=== PATIENT | male | born 1955 | race Caucasian/White ===

== ENCOUNTER 2018-06-03 09:28 | Emergency (ER) | payer OTHER ==
[~2018-06-03] VITALS: Ht 188 cm; Wt 93.9 kg
--- NOTE | 2018-06-03 09:55 | ED GI/GU/ABDOMINAL COMPLAINT ---
History of Present Illness General Chief Complaint: Male Genitourinary Problems Stated Complaint: SEEN IN URGENT CARE FOR UTI SAT NO BETTER FEVER Source: patient, family, old records Exam Limitations: no limitations Vital Signs & Intake/Output Vital Signs & Intake/Output Vital Signs Date Time Temp Pulse Resp B/P B/P Pulse O2 O2 Flow FiO2 Mean Ox Delivery Rate 06/03 1204 98.9 82 20 133/70 98 Room Air 06/03 0935 97.9 120 18 123/81 98 Room Air Room Air Allergies Coded Allergies: No Known Allergies (06/03/18) Triage Note: TRIAGE: WAS DIAGNOSED WITH UTI 06/01/2018 AT AN URGENT CARE. REPORTS NOT FEELING BETTER. WAS PLACED ON CIPRO - HAS TAKEN PRESCRIBED. Triage Nurses Notes Reviewed? yes HPI: On Sunday patient began to experience dysuria, urinary frequency and hesitancy. He went to a walk in center and was diagnosed with UTI and he was put on Cipro. Patient states that he has been taking Cipro yet the symptoms are worsening. He 's been running a fever up to 102 as well as some nausea. He is having severe hesitancy and burning with any urination. Patient states that he is not getting all the urine out. Patient denies any penile discharge. He denies any back pain. Past History Travel History Traveled to [place] past 21 day No Medical History Any Pertinent Medical History? see below for history Cardiovascular: hyperlipidemia Gastrointestinal: GERD Renal: benign prost hyperplasia Endocrine: diabetes Surgical History Surgical History: non-contributory Psychosocial History What is your primary language [place] Tobacco Use: Quit >30 days ago ETOH Use: occasional use Illicit Drug Use: denies illicit drug use Family History Hx Contributory? No Review of Systems Review of Systems Constitutional: Reports: see HPI, chills, fever. EENTM: Reports: no symptoms. Respiratory: Reports: no symptoms. Cardiovascular: Reports: no symptoms. GI: Reports: see HPI, nausea. Genitourinary: Reports: see HPI, dysuria, frequency, hesitation, pain. Musculoskeletal: Reports: no symptoms. Skin: Reports: no symptoms. Neurological/Psychological: Reports: no symptoms. Hematologic/Endocrine: Reports: no symptoms. Immunologic/Allergic: Reports: no symptoms. All Other Systems: Reviewed and Negative Physical Exam Physical Exam General Appearance: well developed/nourished, alert, awake, anxious, moderate distress Head: atraumatic, normal appearance Eyes: Bilateral: PERRL, EOMI. Ears, Nose, Throat, Mouth: hearing grossly normal, DRY MUCOSA Neck: normal inspection, supple, full range of motion Respiratory: normal breath sounds, chest non-tender, no respiratory distress, lungs clear Cardiovascular: regular rate/rhythm, normal peripheral pulses Gastrointestinal: normal bowel sounds, soft, non-tender, no organomegaly Back: normal inspection, normal range of motion, NO cva TENDERNESS Extremities: normal range of motion Neurologic/Psych: no motor/sensory deficits, awake, alert, oriented x 3, normal gait, normal mood/affect Skin: intact, normal color Core Measures ACS in differential dx? No Sepsis Present: No Sepsis Focused Exam Completed? No Progress Differential Diagnosis: urinary retention, UTI/pyelo Plan of Care: Orders Procedure Date/time Status LACTIC ACID 06/03 125 Active CULTURE,URINE 06/03 955 Active BLOOD CULTURE 06/03 955 Active URINALYSIS 06/03 955 Complete LACTIC ACID 06/03 955 Complete COMPREHENSIVE METABOLIC PANEL 06/03 955 Complete CBC WITHOUT DIFFERENTIAL 06/03 955 Complete Laboratory Tests 06/03/18 1010: Anion Gap 11, Estimated GFR > 60, BUN/Creatinine Ratio 11.0, Glucose 403 H, Lactic Acid 1.7, Calcium 9.4, Total Bilirubin 0.9, AST 19, ALT 23, Alkaline Phosphatase 77, Total Protein 7.0, Albumin 4.0, Globulin 3.0, Albumin/Globulin Ratio 1.3, CBC w Diff NO MAN DIFF REQ, RBC 4.78, MCV 91.5, MCH 30.9, MCHC 33.8, RDW 13.5, MPV 8.0, Gran % 80.6 H, Lymphocytes % 7.4 L, Monocytes % 11.3 H, Eosinophils % 0.5, Basophils % 0.2, Absolute Granulocytes 9.3 H, Absolute Lymphocytes 0.9 L, Absolute Monocytes 1.3 H, Absolute Eosinophils 0.1, Absolute Basophils 0, Urine Color STRAW, Urine Clarity CLEAR, Urine pH 6.0, Ur Specific [place] 1.025, Urine Protein NEG, Urine Ketones 40 H, Urine Nitrite NEG, Urine Bilirubin NEG, Urine Urobilinogen 0.2, Ur Leukocyte Esterase NEG, Ur Microscopic EXAM NOT REQUIRED, Urine Hemoglobin NEG, Urine Glucose >=1000 H Microbiology 06/03 1017 BLOOD: Blood Culture - RECD 06/03 1010 URINE ROUT: Urine Culture - RECD 06/03 1010 BLOOD: Blood Culture - RECD Diagnostic Imaging: Viewed by Me: CT Scan. Discussed w/RAD: CT Scan. Radiology Impression: PATIENT: PARRISH PICKARD PRESENT AGE: 63 PATIENT ACCOUNT NO: [id number] : 57 LOCATION: [facility] ORDERING PHYSICIAN: Linden Figueroa MD SERVICE DATE: 06/03/18 EXAM TYPE: CAT - CT ABD & PELVIS W/O IV CONTRAS EXAMINATION: CT ABDOMEN AND PELVIS WITHOUT CONTRAST CLINICAL INFORMATION: Suprapubic pain. Presumptive diagnosis of kidney stone. COMPARISON: None. TECHNIQUE: Multidetector volumetric imaging was performed from the superior aspect of the liver through the pubic symphysis. Sagittal and coronal reformatted images were obtained on the technologist workstation. DLP: 380.81 mGy-cm. FINDINGS: LUNG BASES: Mild dependent atelectasis in both lung bases. LIVER, GALLBLADDER, AND BILIARY TREE: The liver is enlarged, measuring 23.4 cm longitudinally. Liver parenchymal attenuation normal. No focal hepatic lesion on noncontrast imaging. No biliary ductal dilatation is present. The patient is status post cholecystectomy. PANCREAS: Unremarkable on noncontrast imaging. SPLEEN, ADRENAL GLANDS: Unremarkable on noncontrast imaging. KIDNEYS AND URETERS: The kidneys are normal in size, shape, and attenuation. There is an exophytic 1.7 x 1.3 cm cyst in the mid right kidney. No hydronephrosis, hydroureter, or calculi seen. In the pelvis, in region of the ureterovesical junctions, multiple calcifications are seen bilaterally, most consistent with phleboliths. No perinephric stranding. BLADDER : Unremarkable. PELVIC VISCERA: Unremarkable. GASTROINTESTINAL TRACT: The small and large bowel are unremarkable. The appendix is not definitely seen, but no focal inflammatory process is noted in the right lower quadrant. ABDOMINAL WALL: There is a small fat-containing umbilical hernia. LYMPH NODES, VASCULAR: Adenopathy. Incidental note is made of a circumaortic left renal vein. OSSEOUS STRUCTURES: There is a mild convex right lumbar scoliosis with moderate vertebral spondylosis in the lower thoracic spine and at L1-4. Mild facet arthropathy in the lower lumbar spine. No suspicious bone findings. IMPRESSION: 1. No evidence of nephrolithiasis or hydroureteronephrosis. 2. Small exophytic mid right renal cyst. 3. Enlarged right lobe of liver, measuring 23.4 cm longitudinally. 4. Small fat-containing umbilical hernia. DICTATED BY: Argelia Perales MD DATE/TIME DICTATED:06/03/181130 PARKING PATROLLER:REMI DATE/ TIME TRANSCRIBED:06/03/181130 CONFIDENTIAL, DO NOT COPY WITHOUT APPROPRIATE AUTHORIZATION. <Electronically signed in Other Vendor System> SIGNED BY: Argelia Perales MD 06/03/18 1159 Initial ED EKG: none Departure Departure Disposition: HOME OR SELF CARE Condition: Stable Clinical Impression Primary Impression: Dysuria Referrals: Tj REYES,Anita Marvin (PCP/Family) Additional Instructions: Make sure following your blood sugar closely. Drink plenty of fluids. Take Pyridium as needed. Return if symptoms worsen or for any other concerns. Continue the Cipro. Departure Forms: Customer Survey General Discharge Information Prescriptions: Current Visit Scripts Phenazopyridine HCl (Pyridium) 1 TAB PO TID PRN DYSURIA #20 TAB
[2018-06-03 10:23] LABS: ABSOLUTE BASOPHIL COUNT 0 /CUMM (0.0-0.2); ABSOLUTE EOSINOPHIL COUNT 0.1 /CUMM (0.0-0.7); ABSOLUTE GRANULOCYTE CT 9.3 /CUMM (1.4-6.5); ABSOLUTE LYMPH COUNT 0.9 /CUMM (1.2-3.4); ABSOLUTE MONOCYTE COUNT 1.3 /CUMM (0.10-0.60); BASOPHIL % 0.2 % (0.0-2.0); EOSINOPHIL % 0.5 % (0-5); GRANULOCYTE % 80.6 % (42.2-75.2); HEMATOCRIT 43.7 % (42-52); MEAN CORPUSCULAR HGB 30.9 PG (27.0-31.0); MEAN CORPUSCULAR HGB CONC 33.8 G/DL (33.0-37.0); MEAN CORPUSCULAR VOLUME 91.5 FL (80.0-94.0); PLATELET COUNT 216 /CUMM (130-400); RBC DISTRIBUTION WIDTH 13.5 % (11.5-14.5); RED BLOOD CELL CT 4.78 /CUMM (4.70-6.10); WHITE BLOOD CELL COUNT 11.5 /CUMM (4.8-10.8)
--- NOTE | 2018-06-03 11:59 | CT SCAN REPORT ---
EXAMINATION: CT ABDOMEN AND PELVIS WITHOUT CONTRAST CLINICAL INFORMATION: Suprapubic pain. Presumptive diagnosis of kidney stone. COMPARISON: None. TECHNIQUE: Multidetector volumetric imaging was performed from the superior aspect of the liver through the pubic symphysis. Sagittal and coronal reformatted images were obtained on the technologist workstation. DLP: 380.81 mGy-cm. FINDINGS: LUNG BASES: Mild dependent atelectasis in both lung bases. LIVER, GALLBLADDER, AND BILIARY TREE: The liver is enlarged, measuring 23.4 cm longitudinally. Liver parenchymal attenuation normal. No focal hepatic lesion on noncontrast imaging. No biliary ductal dilatation is present. The patient is status post cholecystectomy. PANCREAS: Unremarkable on noncontrast imaging. SPLEEN, ADRENAL GLANDS: Unremarkable on noncontrast imaging. KIDNEYS AND URETERS: The kidneys are normal in size, shape, and attenuation. There is an exophytic 1.7 x 1.3 cm cyst in the mid right kidney. No hydronephrosis, hydroureter, or calculi seen. In the pelvis, in region of the ureterovesical junctions, multiple calcifications are seen bilaterally, most consistent with phleboliths. No perinephric stranding. BLADDER: Unremarkable. PELVIC VISCERA: Unremarkable. GASTROINTESTINAL TRACT: The small and large bowel are unremarkable. The appendix is not definitely seen, but no focal inflammatory process is noted in the right lower quadrant. ABDOMINAL WALL: There is a small fat-containing umbilical hernia. LYMPH NODES, VASCULAR: Adenopathy. Incidental note is made of a circumaortic left renal vein. OSSEOUS STRUCTURES: There is a mild convex right lumbar scoliosis with moderate vertebral spondylosis in the lower thoracic spine and at L1-4. Mild facet arthropathy in the lower lumbar spine. No suspicious bone findings. IMPRESSION: 1. No evidence of nephrolithiasis or hydroureteronephrosis. 2. Small exophytic mid right renal cyst. 3. Enlarged right lobe of liver, measuring 23.4 cm longitudinally. 4. Small fat-containing umbilical hernia.
[2018-06-03 13:16] VITALS: BP 130/72
[2018-06-03] MEDS ORDERED: PYRIDIUM200 M1 PO (13:16)
== END 2018-06-03 13:21 ==
LOC: ERH 09:28
PROVIDERS: Emergency Medicine
DX: R30.0 Dysuria (principal)
CPT/HCPCS: 74176; 81003; 87040; 87086; 96361; 96374; J0696